=== PATIENT | female | born 1970 | race Caucasian/White ===

== ENCOUNTER 2021-02-03 08:16 | Emergency (ER) | payer BC, OTHER ==
[~2021-02-03 08:16] MED LIST: AZITHROMYCIN500 MG PO; NORCO 7.5-3251 EACH PO; ONDANSETRON ODT4 MG SL
[2021-02-03] MEDS ORDERED: CEPHALEXIN500 MG PO (10:40)
[2021-02-03] MEDS ORDERED: BACTRIM DS TAB1 EACH PO (10:40)
== END 2021-02-03 11:00 | disposition home or self-care (01) ==
LOC: ER1 08:16
DX: L03.011 Cellulitis of right finger (principal); I10 Essential (primary) hypertension; F17.210 Nicotine dependence, cigarettes, uncomplicated
CPT/HCPCS: 73130; 96372; 99283; J1885